=== PATIENT | male | born 1985 | race Caucasian/White ===

== ENCOUNTER 2016-10-21 14:10 | Emergency (ER) | payer OTHER ==
[~2016-10-21] VITALS: Ht 175.3 cm; Wt 93.0 kg
[2016-10-21 14:10] VITALS: BP 141/84; PULSE 101; RESP 19; TEMP 98; O2SAT 97
--- NOTE | 2016-10-21 14:10 | NUR ---
BROUGHT BACK TO BED #8 AND TRIAGED. REPORT GIVEN TO NAM
--- NOTE | 2016-10-21 14:11 | NUR ---
Dr. Garcia at bedside to assess pt.
--- NOTE | 2016-10-21 14:12 | NUR ---
Pt here in ED for c/o laceration to right forearm at around 1330 today. Pt c/o pain 2. Laceration is from sheet metal at work. Bleeding to area is controlled. Laceration is about 8cm long, 5cm wide. Pt is able to move fingers.
[2016-10-21] MEDS ORDERED: DIPH-TET-PERTUS Vaccine 0.5 ML VIAL (ADACEL) I.M. ONE (14:30)
[2016-10-21] MEDS ORDERED: LIDOCAINE 1% 10 MG/ML, 20 ML MDV IJ ONE (14:45)
--- NOTE | 2016-10-21 14:45 | NUR ---
Pt went to x ray with tech.
--- NOTE | 2016-10-21 14:50 | NUR ---
Dr. Garcia at bedside to suture/staple pt's wound with LORRIE benavidez at bedside. Pt tolerating procedure well.
[2016-10-21] MEDS ORDERED: BACITRACIN 1 GM OINT TP ONE (15:06)
[2016-10-21 15:26] VITALS: BP 138/80; PULSE 99; RESP 19; TEMP 98.1; O2SAT 98
--- NOTE | 2016-10-21 15:26 | NUR ---
Patient given written and verbal discharge instructions and verbalizes understanding. ER MD discussed with patient the results and treatment provided. Patient in stable condition. ID arm band removed. Opportunity for questions provided and answered.
== END 2016-10-21 15:26 | disposition home or self-care (01) ==
LOC: SED 14:10
DX: S61.511A Laceration without foreign body of right wrist, initial encounter (principal); X58.XXXA Exposure to other specified factors, initial encounter; Y93.89 Activity, other specified; Y99.8 Other external cause status; Y92.89 Other specified places as the place of occurrence of the external cause
CPT/HCPCS: 12002; 73110; 90471; 90715; 99284; J2001